=== PATIENT | female | born 1995 | race American Indian/Alaskan Native ===

== ENCOUNTER 2016-09-18 08:00 | Inpatient (IN) | payer MEDICAID ==
[2016-09-18 08:36] VITALS: BMI 28.8
[2016-09-18] MEDS ORDERED: Lactated Ringer's 1,000 ML IV SCH (08:45)
[2016-09-18 09:23] LABS: BASO % 0.7 % (0.0-2.0); EOS % 0.7 % (0.0-4.0); HEMATOCRIT 38.2 % (34.0-47.0); LYMPH # 2.2 K/uL (1.0-4.3); LYMPH % 31.5 % (20.0-40.0); MEAN CELL VOLUME 79.6 fL (81.0-99.0); MEAN CORPUSCULAR HEMOGLOBIN 25.7 pg (27.0-31.0); MEAN CORPUSCULAR HGB CONC 32.3 g/dL (33.0-37.0); MEAN PLATELET VOLUME 9.8 fL (7.2-11.7); MONO # 0.6 K/uL (0.0-0.8); MONO % 9.1 % (0.0-10.0); NRBC % 0.1 % (0.0-2.0); RED CELL DISTRIBUTION WIDTH 14.9 % (11.5-14.5); WHITE BLOOD COUNT 6.9 K/uL (4.8-10.8)
[2016-09-18 09:25] LABS: RBC URINE 1 /hpf (0-3); URINE BILIRUBIN NEGATIVE (NEGATIVE); URINE BLOOD NEGATIVE (NEGATIVE); URINE COLOR Yellow (YELLOW); URINE GLUCOSE (UA) NORMAL (Normal); URINE KETONE 1+ mg/dL (NEGATIVE); URINE LEUKOCYTE ESTERASE 3+ Leu/uL (Negative); URINE PROTEIN NEGATIVE (NEGATIVE); URINE UROBILINOGEN NORMAL mg/dL (0.2-1.0); WBC URINE 13 /hpf (0-5)
[2016-09-18 09:29] LABS: CHLORIDE 103 mmol/L (98-107)
[2016-09-18] MEDS ORDERED: Oxytocin 30 UNIT 500 ML IV PRN (09:29)
[2016-09-18 09:30] LABS: SODIUM 136 mmol/L (132-148)
[2016-09-18] MEDS ORDERED: Dextrose 5%/Lactated Ringer's 1,000 ML IV SCH (09:30)
[2016-09-18 09:31] LABS: POTASSIUM 3.8 mmol/L (3.6-5.2)
[2016-09-18 09:33] LABS: ALKALINE PHOSPHATASE 123 U/L (38-126); AST/SGOT 23 U/L (14-36); BILIRUBIN,TOTAL 0.7 mg/dL (0.2-1.3); BLOOD UREA NITROGEN 10 mg/dL (7-17); CARBON DIOXIDE 21 mmol/L (22-30); GFR AFRICAN-AMERICAN > 60; TOTAL PROTEIN 7.2 g/dL (6.3-8.3)
[2016-09-18 09:34] LABS: ALT/SGPT 30 U/L (9-52); CALCIUM 9.3 mg/dl (8.6-10.4); GLUCOSE,RANDOM 62 mg/dL (65-105)
[2016-09-18] MEDS ORDERED: Bupivacaine HCl 0.25% PF (10 ml) Inj ONE ×2 (10:17→18:57)
[2016-09-18] MEDS ORDERED: Bupivacaine 0.125%/FentaNYL 200 ML EPI ONE (10:18)
[2016-09-18] MEDS ORDERED: Oxytocin 30 UNIT 500 ML IV ONE (10:43)
--- NOTE | 2016-09-18 18:55 | OBPN ---
Datetime: 09/18/2016 18:45 IP Progress Impression Other: Protracted active phase of labor IP Procedures: Artificial ROM; Intrauterine Pressure Catheter IP Progress Plan: Continue present management; Anticipate Vaginal Delivery Membranes, Provider: Ruptured Amniotic Fluid Color, Provider: Clear Contraction Comments Provider: 1-3 FHR - Baseline A Provider: 140 Gestation - Est Wks by US: 39w 6d Presentation-Admit: Vertex IP Progress Note Comment: Patient reports increaseng vaginal pressure V.E.: as above. AROM performed - copious amount of clear amnionic fluid noted. IUPC inserted. Jose renetta at 12 mUnits Assessment: 21 yo P0, 39w 6d, labour augmentation on pitocin - protracted active phase of labor: S /P AROM; IUPC placed. Category 1 tracing. Clinically stable. Plan: 1) continue present management 2) anticipate vaginal delivery NICHD Accel Fetus A IP Provider: 10X10 FHR Category Provider Fetus A: Category I NICHD Variability Prov Fetus A: Moderate 6-25bpm Dilatation, Provider: 6 Effacement, Provider: 70 Station, Provider: -1 NICHD Decel Fetus A IP Provider: Early
[2016-09-18] MEDS ORDERED: Oxycodone/Acetaminophen 5/325 mg Tab PO PRN (22:01)
--- NOTE | 2016-09-18 22:14 | OBDS ---
DELIVERY PERSONNEL Delivery Doctor: Sivan Oneal MD Anesthesiologist: Dr. Ferro MATERNAL INFORMATION Delivery Anesthesia: Epidural Medications in Delivery: pitocin 20 units Estimated Blood Loss (ml): 150 Placenta Cultured: No Maternal Complications: None RN Comments: to a live baby girl with 03/08 Provider Comments: Uncomplicated vaginal delivery, live female infant, TERESITA, Apgars 9/9, weight 6lb 9 oz, over intact perineum. Infant's mouth and nose bulb-suctioned on bed; umbilical cord doubly clampe d and cut; placed on mother's abodmen Spontaneous delivery of placenta: grossly intact; 3 vessel cord Examination of cervix, vagina, perineum - bilateral 1st degree lacerations noted as above; and rep aired and mother bonding; both in stable condition. LABOR SUMMARY EDC: 09/19/2016 00:00 No. Babies in Womb: 1 Attempted: No Labor Anesthesia: Epidural LABOR INFORMATION Reason for Induction: Not Applicable Onset of Labor: 09/18/2016 06:00 Complete Dilatation: 09/18/2016 20:17 Oxytocin: Augmentation Group B Beta Strep: Negative MEMBRANES Membranes Rupture Method: Artificial Rupture of Membranes: 09/18/2016 18:35 Length of Rupture (hrs): 2.67 Amniotic Fluid Color: Clear Amniotic Fluid Amount: Moderate Amniotic Fluid Odor: Normal STAGES OF LABOR Stage 1 hrs: 14 Stage 1 min: 17 Stage 2 hrs: 0 Stage 2 min: 58 Stage 3 hrs: 0 Stage 3 min: 10 Total Time in Labor hrs: 15 Total Time in Labor min: 25 VAGINAL DELIVERY Episiotomy: None Laceration Extension: First Degree Other Laceration: Labial, bilateral Laceration Repair: Yes Laceration Repair Note: 3-0 chromic, running interlocking Hemostasis assured Patient tolerated procedure well Initial Vag Sponge Count: 10 Final Vag Sponge Count: 10 Initial Vag Sharps Count: 0 Final Vag Sharps Count: 1 Sponge Count Correct: Yes; Vaginal Sweep Performed Sharps Count Correct: Yes Count Comment: correct BABY A INFORMATION Infant Delivery Date/Time: 09/18/2016 21:15 Method of Delivery: Vaginal Born in Route : No : N/A Forceps: N/A Vacuum Extraction: N/A Shoulder Dystocia : No SHOULDER DYSTOCIA BABY A Delivery Date/Time: 09/18/2016 21:15 PRESENTATION/POSITION BABY A Presentation: Cephalic Cephalic Presentation: Vertex Vertex Position: Left Occipital Anterior Breech Presentation: N/A PLACENTA INFORMATION BABY A Placenta Delivery Time : 09/18/2016 21:25 Placenta Method of Delivery: Expressed Placenta Status: Delivered SCORES BABY A Heart Rate 1 min: >100 bpm Resp Effort 1 min: Good Cry Reflex Irritability 1 min: Cough or Sneeze or Pulls Away Muscle Tone 1 min: Active Motion Color 1 min: Body [place], Extremities Blue SCORE 1 MIN: 9 Heart Rate 5 min: >100 bpm Resp Effort 5 min: Good Cry Reflex Irritability 5 min: Cough or Sneeze or Pulls Away Muscle Tone 5 min: Active Motion Color 5 min: Body [place], Extremities Blue SCORE 5 MIN: 9 INFORMATION BABY A Gestational Age at Delivery: 39.6 Gestational Status: Term Outcome : Liveborn Condition : Stable Sex: Female IDENTIFICATION/MEDS BABY A ID Band Number: [id number] ID Band Location: Left Leg; Left Arm Sensor Applied: Yes Sensor Number: [id number] Sensor Location : Cord Clamp Vitamin K Given : Aquamephyton 1 mg IM; Left Thigh Erythromycin Given: Given Both Eyes WEIGHT/LENGTH BABY A Infant Birthweight (gms): 2945 Weight (lb): 6 Infant Weight (oz): 8 Infant Length Inches: 18.50 Infant Length cms: 47.0 CORD INFORMATION BABY A No. Cord Vessels: 3 Nuchal Cord : N/A Cord Blood Taken: Yes Infant Suction: Mouth; Nose ASSESSMENT BABY A Complications: None Physical Findings at Delivery: Within Normal Limits; Telugu Spots Infant Respirations: Appears Normal Edging Catcher/ALS Called : No Care By: Augie GILC Transferred To: Remains with Mother
[2016-09-19] MEDS ORDERED: Benzocaine/Menthol 20%-0.5% Topical Spray (60 ml) TOP SCH
--- NOTE | 2016-09-19 00:28 | OBADHP ---
Datetime: 09/18/2016 18:45 Amniotic Fluid Color, Provider: Clear Membranes, Provider: Ruptured Datetime: 09/18/2016 08:30 Admit Comment, IP Provider: 21 yo , LMP 12/13/16, CHARLENE 09/19/16, EGA 39w 6d confirmed by son at 6+ weeks, c/o Ctx onset 0600 hours, pain scale 7/10, every 5 - 10 minutes. Reports decreased FM since i n Ob-ED. Mani VALENCIA, VB. last had sexual intercourse 2 weeks ago. issues: 1) former prnatal care with Dr. coe; last visit 05/2016 (due to insurance issues): now being folowe at [facility]; last visit last week. 2) UTi inpregnancy P Ob: Primip P SOLE FILLER: 11 x 28 x 7. (+) chlamydia, 2011. HPV (+) PMH: Bronchitis during this . PSH: denies NKDA Meds: PNV Soc Hx: denies tobacco, illicit drug or EtOH use. Lives with ehr mother and mat GM. With FOB x 2 y ears. Unemployed. Fam Hx:Mother alive 45 y.o. - HTN, ernal disorder, dyslipidemia. Father alive 41 y.o. hx unk. PGM - ovarian cancer (); MGM - HTN; "no immune system" Assessment: 21 yo P0, 39w 6d, early labor. GBS (-). Category 1 tracing. discussed wiht patient: pi tocin augmentaiton and pain management, as needed. Patient receptive to epidural. Clinically stable. Plan: 1) Admit 2) NPO 3) IVFs 4) continuous EFM 5) Pitocin 6) Anesthesia consult 7) Anticipate vaginal delivery Pelvic Type - PN: Adequate Extremities - PN: Normal Abdomen - PN: Normal Back - PN: Normal Breast - PN: Not Done Lungs - PN: Normal Heart - PN: Normal Thyroid - PN: Not Done Neurologic - PN: Normal HEENT - PN: Normal General - PN: Normal Weight - Estimated: 3178 Presentation-Admit: Vertex FHR - Baseline A Provider: 140 Contraction Comments Provider: sporadic Comments, ACOG Physical Exam: Skin: warm, dry, intact HEENT: full ROM Lungs: CTA bilaterally Cardiac: RRR, normal S1, S2 Abdomen: Gravid. Firm with contractions. Fundal height 38 cm : no masses or discharge Extremities: no calf tendenress, cyanosis or edema All other systems reviewed - as per HPI Gestation - Est Wks by US: 39w 6d IP Hx Assessment: The History has been Reviewed and is Current Vital Signs Provider: Reviewed IP Chief Complaint: Uterine contractions; Decreased movement NICHD Variability Prov Fetus A: Moderate 6-25bpm NICHD Accel Fetus A IP Provider: 15X15 FHR Category Provider Fetus A: Category I NICHD Decel Fetus A IP Provider: None Dilatation, Provider: 4 Effacement, Provider: 60 Station, Provider: -2 Genitourinary Exam: Normal DTRs - PN: Not Done EGA AdmitDate IP: 39.6 IP Adm Impression: Term, intrauterine ; Active labor; Intact Membranes IP Admit Plan: Admit to unit; Initiate labor augmentation protocol Datetime: 07/02/2016 04:29 IP Chief Complaint Other: For NST after ER Evaluation IP Adm Impression Other: Vaginitis
[2016-09-19] MEDS ORDERED: Benzocaine/Menthol 20%-0.5% Topical Spray (60 ml) EXT PRN (01:20)
[2016-09-19] MEDS ORDERED: Measles, Mumps, and Rubella Vaccine SC ONE (08:00)
[2016-09-19 09:08] LABS: BASO # 0.1 K/uL (0.0-0.2); BASO % 0.3 % (0.0-2.0); EOS % 0.3 % (0.0-4.0); HEMATOCRIT 37.6 % (34.0-47.0); LYMPH # 2.3 K/uL (1.0-4.3); LYMPH % 13.5 % (20.0-40.0); MEAN CELL VOLUME 79.9 fL (81.0-99.0); MEAN CORPUSCULAR HEMOGLOBIN 25.7 pg (27.0-31.0); MEAN CORPUSCULAR HGB CONC 32.2 g/dL (33.0-37.0); MEAN PLATELET VOLUME 10.4 fL (7.2-11.7); MONO # 1.1 K/uL (0.0-0.8); MONO % 6.4 % (0.0-10.0); RED CELL DISTRIBUTION WIDTH 14.8 % (11.5-14.5)
[2016-09-19 09:10] LABS: WHITE BLOOD COUNT 17.2 K/uL (4.8-10.8)
--- NOTE | 2016-09-19 09:23 | OBPPN ---
Datetime: 09/19/2016 09:21 PP Pain Prov: Within normal limits PP Nausea Prov: Denies PP Flatus Prov: Yes PP BM Prov: No PP Heart Prov: Normal PP Lungs Prov: Normal PP Abdomen/Uterus Prov: Normal PP Lochia Prov: Normal PP CVA Tenderness Prov: Normal PP Extremities Prov: Normal PP C/S Incision Prov: Not Applicable PP Progress Prov: Normal PP Impression Prov: Normal progression PP Plan Prov: Continue present management PP Progress Note Prov: S-patient reports that pain is controlled with percocet and motrin.she is jocelynn erating regular diet.ambulating and voiding without difficulty O-VSS Afebrile Fundus firm and below umbilicus Extremities no calf tenderness A/P Patient s/p vaginal delivery ppd 1 doing well -continue routine PP care -check am cbc -encourage ambulation and po fluid intake Vital Signs Provider PP: Reviewed; Within Normal Limits
[2016-09-19] MEDS: Multiple Vitamins Tab PO SCH (09:38)
[2016-09-20 00:31] VITALS: BP 127/74; PULSE 86; RESP 20; TEMP 98.9; O2SAT 97
--- NOTE | 2016-09-20 07:29 | OBPPN ---
Datetime: 09/20/2016 07:28 PP Pain Prov: Within normal limits PP Nausea Prov: Denies PP Flatus Prov: Yes PP Abdomen/Uterus Prov: Normal PP Extremities Prov: Normal PP Comments Phys Exam Prov: fudus below umb ext no edema,no calf ten PP Impression Prov: Normal progression PP Plan Prov: Discharge PP Progress Note Prov: pt was seen at bed side, pain under control,no n/v, tolerating deit,voiding,m in ocha, flatuas+ ppd#2 s/p dc home mno sex motrin prn f/u in 6weeks Vital Signs Provider PP: Reviewed; Within Normal Limits
--- NOTE | 2016-09-20 07:31 | OBDCSUM ---
Datetime: 09/20/2016 07:28 Discharged to, Provider: Home Follow up at, Provider: 6we Discharge Diagnosis, Provider: Term Delivered Follow up in weeks, Provider: clinic Disch Activity Restrictions: No lifting; No driving; Minimize walking; Minimize stair-climbing; No s exual activity; Nothing in vagina - Export, tampons, douche Discharge Comment, Provider: no sex motrin prn f/u in 6wee Discharge Diagnosis Prov Other:
[2016-09-20] MEDS: Multiple Vitamins Tab PO SCH (09:19)
[2016-09-20] MEDS ORDERED: Measles, Mumps, and Rubella Vaccine SC ONE (11:00)
[2016-09-20] MEDS ORDERED: Influenza Virus Vaccine 45 mcg/0.5 ml Syr IM ONE (12:00)
== END 2016-09-20 13:05 | disposition home or self-care (01) | DRG 373 ==
LOC: C.EROB 08:00 → C.4D 08:30 → C.4M 09-19 01:10
PROVIDERS: ADMIT Obstetrics & Gynecology; ATTEND Obstetrics & Gynecology
PROC: 10E0XZZ Delivery of Products of Conception, External Approach (ICD-10-PCS; principal; 2016-09-18)
PROC: 10H073Z Insertion of Monitoring Electrode into Products of Conception, Via Natural or Artificial Opening (ICD-10-PCS; 2016-09-18)
PROC: 4A1J7BZ Monitoring of Products of Conception, Nervous Pressure, Via Natural or Artificial Opening (ICD-10-PCS; 2016-09-18)
PROC: 0HQ9XZZ Repair Perineum Skin, External Approach (ICD-10-PCS; 2016-09-18)
DX: O62.2 Other uterine inertia (principal); O70.0 First degree perineal laceration during delivery; Z37.0 Single live birth; Z3A.39 39 weeks gestation of pregnancy